=== PATIENT | female | born 1940 | race Asian ===

== ENCOUNTER 2016-06-21 03:11 | Inpatient (IN) | payer MEDICARE ==
[~2016-06-21] VITALS: Ht 175.3 cm; Wt 167.9 kg
[~2016-06-21 03:11] MED LIST: ACET325T26 PO; AMIO200T PO; AMIO200T42 PO; AMLO5TAB4 PO; APIX2.5T PO; ASPI-496 PO; CARV-39 PO; COLC1TAB PO; FURO-93 PO; FURO20TA3 PO; HYDR-3138 PO; INDO50CA PO; LINA5TAB PO; LISI-167 PO; OMEP-110 PO; PANT40TA5 PO; TEMA15CA6 PO; WARF5TAB PO
[2016-06-21] MEDS ORDERED: ALBUTEROL/IPRATROPIUM 2.5MG/0.5MG, 3 ML ONE (03:47)
[2016-06-21] MEDS ORDERED: PANT20TA3 PO (03:47)
[2016-06-21] MEDS ORDERED: IBUP-1222 PO (03:49)
[2016-06-21] MEDS ORDERED: ATOR40TA78 PO (03:50)
[2016-06-21] MEDS ORDERED: ALBUTEROL SULFATE 2.5 MG/3 ML NPPB ONE (04:00)
[2016-06-21 05:01] LABS: BLOOD UREA NITROGEN 31 mg/dL (7-18); IS PT STATUS REG ER OR PRE ER? YES
[2016-06-21] MEDS ORDERED: BACITRACIN ZINC OINT 500U/GM, 0.9 GM ONE (05:15)
[2016-06-21] MEDS ORDERED: ONDANSETRON 2MG/ML, 2ML IVPush PRN (05:30)
[2016-06-21 06:41] VITALS: BP 127/73
[2016-06-21 06:57] VITALS: BP 117/73
[2016-06-21] MEDS ORDERED: HYDROcodone/APAP 5/325 TABLET PO PRN (10:30)
[2016-06-21] MEDS ORDERED: NITROGLYCERIN OINT 2%, 1GM TP ONE (11:00)
[2016-06-21] MEDS: INSULIN REGULAR 100 UNITS/ML, 3ML VIAL SQ-INSULIN SCH ×3 (11:00→21:44)
[2016-06-21] MEDS: FUROSEMIDE 40 MG/4 ML IV SCH (11:07)
[2016-06-21 11:33] LABS: IS PT STATUS REG ER OR PRE ER? NO
[2016-06-21 12:37] VITALS: BP 133/72
[2016-06-21] MEDS ORDERED: FUROSEMIDE 40 MG/4 ML IV ONE (15:30)
[2016-06-21 16:10] LABS: IS PT STATUS REG ER OR PRE ER? NO
[2016-06-21 16:49] LABS: PATH.CAST-FLAG NOT PRESENT; SPERM-FLAG NOT PRESENT; SRC-FLAG NOT PRESENT; XTAL-FLAG NOT PRESENT; YLC-FLAG NOT PRESENT
[2016-06-21] MEDS ORDERED: WARFARIN 1 MG TABLET PO-COUM ONE (18:00)
[2016-06-21 19:30] VITALS: BP 118/70
[2016-06-21] MEDS: ATORVASTATIN 40 MG TABLET PO SCH (20:32)
[2016-06-21] MEDS: CARVEDILOL 25 MG TABLET PO SCH (20:42)
[2016-06-21] MEDS ORDERED: CARVEDILOL 25 MG TABLET PO SCH (21:00)
[2016-06-22 03:00] VITALS: BP 108/71
[2016-06-22 05:54] LABS: BLOOD UREA NITROGEN 42 mg/dL (7-18)
[2016-06-22 05:57] LABS: ASPARTATE AMINO TRANSFERASE 13 U/L (15-37)
[2016-06-22 07:21] VITALS: BP 119/72
[2016-06-22] MEDS: INSULIN REGULAR 100 UNITS/ML, 3ML VIAL SQ-INSULIN SCH ×4 (07:59→20:56)
[2016-06-22] MEDS: FUROSEMIDE 40 MG/4 ML IV SCH (09:45)
[2016-06-22] MEDS: CARVEDILOL 25 MG TABLET PO SCH ×2 (09:49→20:49)
[2016-06-22] MEDS: AMIODARONE 200 MG TABLET PO SCH (09:49)
[2016-06-22] MEDS: SENNA/DOCUSATE TABLET PO SCH (09:49)
[2016-06-22] MEDS ORDERED: methylPREDNISolone 4mg DOSE PACK PO SCH (10:00)
[2016-06-22] MEDS: CEFDINIR 300 MG CAPSULE PO SCH ×2 (11:05→23:05)
[2016-06-22] MEDS: GUAIFENESIN 200 MG TABLET PO SCH ×3 (11:05→20:50)
[2016-06-22 12:40] VITALS: BP 137/70
[2016-06-22] MEDS ORDERED: BISACODYL 10 MG SUPP PR PRN (14:30)
[2016-06-22 16:20] VITALS: BP 97/67
[2016-06-22] MEDS ORDERED: WARFARIN 1 MG TABLET PO-COUM ONE (18:00)
[2016-06-22 20:08] VITALS: BP 125/76
[2016-06-22] MEDS: ATORVASTATIN 40 MG TABLET PO SCH (20:50)
[2016-06-23 01:48] VITALS: BP 138/74
[2016-06-23 05:45] LABS: BLOOD UREA NITROGEN 41 mg/dL (7-18)
[2016-06-23] MEDS: INSULIN REGULAR 100 UNITS/ML, 3ML VIAL SQ-INSULIN SCH ×2 (07:00→11:00)
[2016-06-23 08:02] VITALS: BP 131/78
[2016-06-23] MEDS ORDERED: HOLD COUMADIN MC PRN (08:30)
[2016-06-23] MEDS: CARVEDILOL 25 MG TABLET PO SCH (09:00)
[2016-06-23] MEDS: SENNA/DOCUSATE TABLET PO SCH (09:09)
[2016-06-23] MEDS: AMIODARONE 200 MG TABLET PO SCH (09:09)
[2016-06-23] MEDS: CEFDINIR 300 MG CAPSULE PO SCH (09:09)
[2016-06-23] MEDS: GUAIFENESIN 200 MG TABLET PO SCH ×2 (09:09→12:42)
[2016-06-23] MEDS ORDERED: CARV25TA12 PO (11:09)
[2016-06-23] MEDS ORDERED: CEFD300C37 PO (11:09)
[2016-06-23] MEDS ORDERED: GUAI200T3 PO (11:09)
[2016-06-23] MEDS ORDERED: METH4TAB2 PO (11:09)
[2016-06-23] MEDS ORDERED: CARVEDILOL 12.5 MG TABLET PO SCH (21:00)
== END 2016-06-23 15:30 | disposition home or self-care (01) | DRG 291 ==
LOC: ED 03:47 → EDIP 05:09 → 5SO 06:52 → DCLOUNGE 06-23 15:00
PROVIDERS: ADMIT Family Medicine; ATTEND Family Medicine
DX: I13.0 Hypertensive heart and chronic kidney disease with heart failure and stage 1 through stage 4 chronic kidney disease, or unspecified chronic kidney disease (principal); J96.01 Acute respiratory failure with hypoxia; D68.69 Other thrombophilia; N18.4 Chronic kidney disease, stage 4 (severe); J44.0 Chronic obstructive pulmonary disease with (acute) lower respiratory infection; I50.32 Chronic diastolic (congestive) heart failure; Z68.43 Body mass index [BMI] 50.0-59.9, adult; E66.01 Morbid (severe) obesity due to excess calories; E11.22 Type 2 diabetes mellitus with diabetic chronic kidney disease; G89.29 Other chronic pain; I45.9 Conduction disorder, unspecified; M19.90 Unspecified osteoarthritis, unspecified site; I48.91 Unspecified atrial fibrillation; J20.9 Acute bronchitis, unspecified; M10.9 Gout, unspecified; Z79.01 Long term (current) use of anticoagulants; Z87.440 Personal history of urinary (tract) infections; Z95.0 Presence of cardiac pacemaker
CPT/HCPCS: 36415; 71010; 78582; 80048; 80053; 81001; 82040; 82962; 83880; 84443; 84484; 85025; 85610; 93005; 93306; 93308; 93321; 93325; 94640; 99285; J1815; J1940; J7509; J7613; A9540; A9558; C9898; J7512

== ENCOUNTER 2016-07-18 21:40 | Inpatient (IN) | payer SELFPAY ==
[~2016-07-18] VITALS: Ht 175.3 cm; Wt 175.9 kg
[2016-07-18] MEDS: CARVEDILOL 25 MG TABLET PO SCH (00:55)
[2016-07-18] MEDS: SODIUM CHLORIDE 0.9% 1,000 ML IV SCH (01:30)
[~2016-07-18 21:40] MED LIST changes: +ATOR40TA78 PO; +CARV25TA12 PO; +CEFD300C37 PO; +GUAI200T3 PO; +HEPARIN 5,000 UNITS/ML, 1ML IV ONE; +HEPARIN 5,000 UNITS/ML, 1ML ONE; +IBUP-1222 PO; +METH4TAB2 PO; +PANT20TA3 PO
[2016-07-18 23:30] VITALS: BP 149/82
[2016-07-19] MEDS: ATORVASTATIN 40 MG TABLET PO SCH ×2 (00:55→21:29)
[2016-07-19] MEDS ORDERED: HEPARIN 5,000 UNITS/ML, 1ML ONE (02:59)
[2016-07-19] MEDS: HEPARIN 5,000 UNITS/ML, 1ML IV PRN (03:00)
[2016-07-19 07:02] VITALS: BP 131/79
[2016-07-19] MEDS: PANTOPRAZOLE 20MG TABLET PO SCH ×2 (07:30→11:00)
[2016-07-19] MEDS: SODIUM CHLORIDE 0.9% 1,000 ML IV SCH ×2 (07:40→17:40)
[2016-07-19] MEDS: AMLODIPINE 5 MG TABLET PO SCH ×2 (09:00→11:00)
[2016-07-19] MEDS: AMIODARONE 200 MG TABLET PO SCH ×2 (09:00→11:00)
[2016-07-19] MEDS: CARVEDILOL 25 MG TABLET PO SCH (09:00)
[2016-07-19] MEDS ORDERED: HEPARIN 25,000 UNITS/500ML PMX 500 ML ONE (13:28)
[2016-07-19] MEDS: INSULIN ASPART 100 UNITS/ML, 3ML PEN LOW DOSE SS SQ-INSULIN SCH ×2 (13:30→21:30)
[2016-07-19 14:43] VITALS: BP 144/76
[2016-07-19] MEDS ORDERED: WARFARIN 5 MG TABLET PO-COUM ONE (18:00)
[2016-07-19 18:35] VITALS: BP 154/76
[2016-07-19] MEDS: DIPHENHYDRAMINE/ZINC CRM 2%, 30GM TP PRN (21:28)
[2016-07-19 22:29] LABS: IS PT STATUS REG ER OR PRE ER? NO
[2016-07-20 02:05] VITALS: BP 130/75
[2016-07-20 02:25] LABS: BLOOD UREA NITROGEN 19 mg/dL (7-18)
[2016-07-20 02:53] LABS: IS PT STATUS REG ER OR PRE ER? NO
[2016-07-20] MEDS: DIPHENHYDRAMINE/ZINC CRM 2%, 30GM TP PRN (05:33)
[2016-07-20] MEDS: CARVEDILOL 25 MG TABLET PO SCH ×2 (05:36→17:15)
[2016-07-20] MEDS: INSULIN ASPART 100 UNITS/ML, 3ML PEN LOW DOSE SS SQ-INSULIN SCH ×4 (05:37→20:12)
[2016-07-20 07:07] VITALS: BP 139/75
[2016-07-20] MEDS: TRAJENTA 5 MG PO SCH (09:00)
[2016-07-20] MEDS: PANTOPRAZOLE 20MG TABLET PO SCH (09:57)
[2016-07-20] MEDS: AMIODARONE 200 MG TABLET PO SCH (09:57)
[2016-07-20] MEDS: AMLODIPINE 5 MG TABLET PO SCH (10:00)
[2016-07-20 10:14] LABS: IS PT STATUS REG ER OR PRE ER? NO
[2016-07-20] MEDS: DIPHENHYDRAMINE/ZINC CRM 2%, 30GM TP SCH ×3 (11:00→20:13)
[2016-07-20] MEDS ORDERED: ALBUTEROL/IPRATROPIUM 2.5MG/0.5MG, 3 ML NPPB PRN (11:00)
[2016-07-20 12:25] VITALS: BP 135/77
[2016-07-20] MEDS: HEPARIN 25,000 UNITS/500ML PMX 500 ML IV PRN (14:58)
[2016-07-20] MEDS ORDERED: WARFARIN 5 MG TABLET PO-COUM ONE (18:00)
[2016-07-20 20:02] VITALS: BP 126/69
[2016-07-20] MEDS: ATORVASTATIN 40 MG TABLET PO SCH (20:13)
[2016-07-21] MEDS ORDERED: IBUPROFEN 200 MG TABLET PO PRN (01:30)
[2016-07-21 02:04] VITALS: BP 159/75
[2016-07-21] MEDS: CARVEDILOL 25 MG TABLET PO SCH ×3 (05:55→17:41)
[2016-07-21] MEDS: DIPHENHYDRAMINE/ZINC CRM 2%, 30GM TP SCH ×4 (05:58→20:50)
[2016-07-21 06:23] LABS: ANTI-Xa-UNFRACTIONATED HEP 0.23 IU/mL (0.30-0.70)
[2016-07-21 06:38] VITALS: BP 133/76
[2016-07-21] MEDS: INSULIN ASPART 100 UNITS/ML, 3ML PEN LOW DOSE SS SQ-INSULIN SCH ×4 (07:00→20:49)
[2016-07-21] MEDS ORDERED: ACETAMINOPHEN 325 MG TABLET PO PRN (07:30)
[2016-07-21] MEDS: AMIODARONE 200 MG TABLET PO SCH (08:30)
[2016-07-21] MEDS: PANTOPRAZOLE 20MG TABLET PO SCH (08:30)
[2016-07-21] MEDS: AMLODIPINE 5 MG TABLET PO SCH (08:30)
[2016-07-21] MEDS: HEPARIN 5,000 UNITS/ML, 1ML IV PRN ×2 (08:34→16:14)
[2016-07-21] MEDS: HEPARIN 25,000 UNITS/500ML PMX 500 ML IV PRN (08:36)
[2016-07-21] MEDS: TRAJENTA 5 MG PO SCH (08:39)
[2016-07-21 11:37] VITALS: BP 117/57
[2016-07-21 12:43] LABS: ASPARTATE AMINO TRANSFERASE 17 U/L (15-37); BLOOD UREA NITROGEN 19 mg/dL (7-18)
[2016-07-21 12:44] LABS: IS PT STATUS REG ER OR PRE ER? NO
[2016-07-21 15:35] VITALS: BP 132/68
[2016-07-21] MEDS ORDERED: WARFARIN 7.5 MG TABLET PO-COUM ONE (18:00)
[2016-07-21 20:27] VITALS: BP 133/84
[2016-07-21] MEDS: ATORVASTATIN 40 MG TABLET PO SCH (20:49)
[2016-07-22 00:50] VITALS: BP 132/68
[2016-07-22] MEDS: DIPHENHYDRAMINE/ZINC CRM 2%, 30GM TP SCH ×4 (05:52→20:30)
[2016-07-22] MEDS: CARVEDILOL 25 MG TABLET PO SCH ×2 (05:52→17:55)
[2016-07-22] MEDS: HEPARIN 25,000 UNITS/500ML PMX 500 ML IV PRN ×2 (05:56→20:30)
[2016-07-22] MEDS: INSULIN ASPART 100 UNITS/ML, 3ML PEN LOW DOSE SS SQ-INSULIN SCH ×4 (07:00→20:30)
[2016-07-22 08:56] VITALS: BP 124/76
[2016-07-22] MEDS: TRAJENTA 5 MG PO SCH (09:00)
[2016-07-22] MEDS: AMIODARONE 200 MG TABLET PO SCH (09:02)
[2016-07-22] MEDS: PANTOPRAZOLE 20MG TABLET PO SCH (09:02)
[2016-07-22] MEDS: AMLODIPINE 5 MG TABLET PO SCH (09:02)
[2016-07-22 10:22] LABS: ASPARTATE AMINO TRANSFERASE 19 U/L (15-37); BLOOD UREA NITROGEN 21 mg/dL (7-18)
[2016-07-22 10:28] LABS: IS PT STATUS REG ER OR PRE ER? NO
[2016-07-22] MEDS: HYDROCORTISONE CRM 1%, 30GM TP SCH ×3 (15:34→20:30)
[2016-07-22 15:48] VITALS: BP 121/80
[2016-07-22] MEDS ORDERED: POLYETHYLENE GLYCOL 17 GM PACKET PO PRN (17:00)
[2016-07-22] MEDS ORDERED: WARFARIN 2 MG TABLET PO-COUM ONE (18:00)
[2016-07-22] MEDS: DOCUSATE 100 MG CAPSULE PO PRN (18:19)
[2016-07-22] MEDS: ATORVASTATIN 40 MG TABLET PO SCH (20:30)
[2016-07-22 21:41] VITALS: BP 146/76
[2016-07-23 01:41] VITALS: BP 135/85
[2016-07-23 05:16] VITALS: BP 110/68
[2016-07-23] MEDS: DOCUSATE 100 MG CAPSULE PO PRN (05:17)
[2016-07-23] MEDS: CARVEDILOL 25 MG TABLET PO SCH ×2 (05:18→17:18)
[2016-07-23] MEDS: DIPHENHYDRAMINE/ZINC CRM 2%, 30GM TP SCH ×4 (05:19→21:00)
[2016-07-23 05:29] LABS: ANTI-Xa-UNFRACTIONATED HEP 0.22 IU/mL (0.30-0.70)
[2016-07-23 05:37] LABS: BLOOD UREA NITROGEN 14 mg/dL (7-18)
[2016-07-23] MEDS: HEPARIN 5,000 UNITS/ML, 1ML IV PRN ×2 (06:08→20:11)
[2016-07-23 06:30] VITALS: BP 115/66
[2016-07-23] MEDS: INSULIN ASPART 100 UNITS/ML, 3ML PEN LOW DOSE SS SQ-INSULIN SCH ×4 (07:00→20:04)
[2016-07-23] MEDS: PANTOPRAZOLE 20MG TABLET PO SCH (07:53)
[2016-07-23] MEDS: AMIODARONE 200 MG TABLET PO SCH (08:09)
[2016-07-23] MEDS: HYDROCORTISONE CRM 1%, 30GM TP SCH ×3 (08:09→20:11)
[2016-07-23] MEDS: AMLODIPINE 5 MG TABLET PO SCH (08:09)
[2016-07-23] MEDS: TRAJENTA 5 MG PO SCH (08:13)
[2016-07-23] MEDS: HEPARIN 25,000 UNITS/500ML PMX 500 ML IV PRN (11:38)
[2016-07-23 13:23] VITALS: BP 112/64
[2016-07-23] MEDS ORDERED: BISACODYL 10 MG SUPP PR PRN (15:00)
[2016-07-23] MEDS ORDERED: POLYETHYLENE GLYCOL 17 GM PACKET PO PRN (17:00)
[2016-07-23] MEDS ORDERED: WARFARIN 5 MG TABLET PO-COUM SCH (18:00)
[2016-07-23 20:01] VITALS: BP 121/71
[2016-07-23] MEDS: ATORVASTATIN 40 MG TABLET PO SCH (20:11)
[2016-07-24] MEDS: HEPARIN 25,000 UNITS/500ML PMX 500 ML IV PRN ×2 (01:02→16:02)
[2016-07-24 01:58] VITALS: BP 126/79
[2016-07-24 02:33] LABS: BLOOD UREA NITROGEN 18 mg/dL (7-18)
[2016-07-24 05:04] VITALS: BP 105/57
[2016-07-24] MEDS: DIPHENHYDRAMINE/ZINC CRM 2%, 30GM TP SCH ×4 (05:09→21:00)
[2016-07-24] MEDS: CARVEDILOL 25 MG TABLET PO SCH ×2 (05:09→17:32)
[2016-07-24 06:50] VITALS: BP 119/65
[2016-07-24] MEDS: INSULIN ASPART 100 UNITS/ML, 3ML PEN LOW DOSE SS SQ-INSULIN SCH ×4 (07:00→21:00)
[2016-07-24] MEDS: TRAJENTA 5 MG PO SCH (09:00)
[2016-07-24] MEDS: HYDROCORTISONE CRM 1%, 30GM TP SCH ×3 (09:15→21:30)
[2016-07-24] MEDS: HYDROcodone/APAP 5/325 TABLET PO PRN ×4 (09:15→21:49)
[2016-07-24] MEDS: AMLODIPINE 5 MG TABLET PO SCH (09:15)
[2016-07-24] MEDS: PANTOPRAZOLE 20MG TABLET PO SCH (09:15)
[2016-07-24] MEDS: AMIODARONE 200 MG TABLET PO SCH (09:15)
[2016-07-24 13:20] VITALS: BP 130/67
[2016-07-24] MEDS ORDERED: WARFARIN 2 MG TABLET PO-COUM ONE (18:00)
[2016-07-24 19:38] VITALS: BP 130/68
[2016-07-24] MEDS: ATORVASTATIN 40 MG TABLET PO SCH (21:30)
[2016-07-25 03:40] VITALS: BP 116/73
[2016-07-25] MEDS: HYDROcodone/APAP 5/325 TABLET PO PRN ×2 (03:42→12:00)
[2016-07-25 05:26] LABS: ANTI-Xa-UNFRACTIONATED HEP 0.19 IU/mL (0.30-0.70)
[2016-07-25 05:29] LABS: BLOOD UREA NITROGEN 22 mg/dL (7-18)
[2016-07-25] MEDS: CARVEDILOL 25 MG TABLET PO SCH (06:00)
[2016-07-25] MEDS: HEPARIN 5,000 UNITS/ML, 1ML IV PRN (06:04)
[2016-07-25] MEDS: HEPARIN 25,000 UNITS/500ML PMX 500 ML IV PRN (06:07)
[2016-07-25 06:45] VITALS: BP 127/58
[2016-07-25] MEDS: INSULIN ASPART 100 UNITS/ML, 3ML PEN LOW DOSE SS SQ-INSULIN SCH ×2 (07:00→11:00)
[2016-07-25] MEDS ORDERED: CARV25TA12 PO (07:48)
[2016-07-25] MEDS ORDERED: WARF1TAB PO-COUM (07:48)
[2016-07-25] MEDS: AMIODARONE 200 MG TABLET PO SCH (07:50)
[2016-07-25] MEDS: PANTOPRAZOLE 20MG TABLET PO SCH (07:51)
[2016-07-25] MEDS: TRAJENTA 5 MG PO SCH (07:51)
[2016-07-25] MEDS: HYDROCORTISONE CRM 1%, 30GM TP SCH (07:52)
[2016-07-25] MEDS: AMLODIPINE 5 MG TABLET PO SCH (07:52)
[2016-07-25] MEDS: DIPHENHYDRAMINE/ZINC CRM 2%, 30GM TP SCH ×2 (07:53→11:00)
[2016-07-25] MEDS ORDERED: WARFARIN 1 MG TABLET PO-COUM SCH (18:00)
[2016-07-27 11:06] LABS: APTT 41.8 sec (.); PROTHROMBIN TIME 11.2 sec (.)
== END 2016-07-25 15:56 | disposition home health service (06) | DRG 300 ==
LOC: 5SO 21:40 → 4WST 07-21 11:07
PROVIDERS: ADMIT Hospitalist
DX: I82.622 Acute embolism and thrombosis of deep veins of left upper extremity (principal); D68.69 Other thrombophilia; E44.0 Moderate protein-calorie malnutrition; E87.1 Hypo-osmolality and hyponatremia; N17.9 Acute kidney failure, unspecified; Z68.43 Body mass index [BMI] 50.0-59.9, adult; K21.9 Gastro-esophageal reflux disease without esophagitis; D64.9 Anemia, unspecified; E11.22 Type 2 diabetes mellitus with diabetic chronic kidney disease; E66.9 Obesity, unspecified; I13.10 Hypertensive heart and chronic kidney disease without heart failure, with stage 1 through stage 4 chronic kidney disease, or unspecified chronic kidney disease; I48.2 Chronic atrial fibrillation; M17.12 Unilateral primary osteoarthritis, left knee; M10.9 Gout, unspecified; J40 Bronchitis, not specified as acute or chronic; Z95.0 Presence of cardiac pacemaker; Z79.899 Other long term (current) drug therapy; Z82.49 Family history of ischemic heart disease and other diseases of the circulatory system
CPT/HCPCS: 36415; 71010; 71250; 74176; 78582; 80048; 80053; 81241; 82040; 82962; 83036; 83735; 84439; 84443; 84484; 84550; 85025; 85300; 85301; 85303; 85306; 85520; 85598; 85610; 85613; 85670; 85730; 85732; 86146; 86147; 93005; 94640; J1644; J7620; A9540; A9558; C9898; J7030

== ENCOUNTER 2018-12-24 15:19 | Inpatient (IN) | payer MEDICARE ==
[~2018-12-24] VITALS: Ht 170.2 cm; Wt 170.0 kg
[~2018-12-24 15:19] MED LIST changes: +CARV12.543 PO; +GLIM4TAB4 PO; -GUAI200T3 PO; +GUAI200T37 PO; -HEPARIN 5,000 UNITS/ML, 1ML IV ONE; -HEPARIN 5,000 UNITS/ML, 1ML ONE; -HYDR-3138 PO; +HYDR-3237 PO; -INDO50CA PO; +INDO50CA15 PO; +WARF1TAB PO-COUM
--- NOTE | 2018-12-24 16:03 | NUR ---
Note undone in EDM - 12/24/18 at 1605 by KAELYN Assumed care of patient. C/O SOB x 1 week. +orthopnea. 1+ bilat pedal edema. Denies CP, dizziness, palpitations, and nausea. Placed on NIBP, pulse ox and cardiac monitor technician. Family at bedside. Will continue to monitor.
--- NOTE | 2018-12-24 16:05 | NUR ---
Assumed care of patient. C/O SOB x 1 week. +orthopnea. 2+ bilat pedal edema. Denies CP, dizziness, palpitations, and nausea. Placed on NIBP, pulse ox and monitoring tech. Family at bedside. Will continue to monitor.
[2018-12-24] MEDS ORDERED: COLC0.6T37 PO (16:12)
[2018-12-24] MEDS ORDERED: LISI-167 PO (16:12)
[2018-12-24] MEDS ORDERED: ERGO500017 PO (16:12)
[2018-12-24] MEDS ORDERED: WARF-36 PO (16:12)
[2018-12-24] MEDS ORDERED: LINA5TAB PO (16:12)
[2018-12-24] MEDS ORDERED: WARF2.5T32 PO (16:12)
[2018-12-24] MEDS ORDERED: CARV-39 PO (16:12)
[2018-12-24] MEDS ORDERED: LEVO50TA5 PO (16:12)
[2018-12-24] MEDS ORDERED: SODIUM CHLORIDE FLUSH 10ML SYR IVF ONE (16:30)
[2018-12-24 16:33] LABS: BASOPHILS # (AUTO) 0.03 x10^3/uL (0-0.1); BASOPHILS % (AUTO) 1 % (0-1); EOSINOPHILS # (AUTO) 0.09 x10^3/uL (0-0.4); EOSINOPHILS % (AUTO) 2 % (1-7); LYMPHOCYTES # (AUTO) 0.88 x10^3/uL (1-3.4); LYMPHOCYTES % (AUTO) 17 % (22-44); MD NO; MEAN CORPUSCULAR HEMOGLOBIN 34.6 pg (27.0-34.8); MEAN CORPUSCULAR HGB CONC 32.5 g/dL (32.4-35.8); MEAN CORPUSCULAR VOLUME 106.7 fL (80-100); MONOCYTES # (AUTO) 0.81 x10^3/uL (0.2-0.8); MONOCYTES % (AUTO) 16 % (2-9); NEUTROPHILS # (AUTO) 3.32 x10^3/uL (1.8-6.8); NEUTROPHILS % (AUTO) 65 % (42-75); PLATELET COUNT 162 x10^3/uL (130-400); RED BLOOD COUNT 3.41 x10^6/uL (3.82-5.3); RED CELL DISTRIBUTION WIDTH 15.6 % (9.6-15.2)
[2018-12-24 16:43] LABS: ALANINE AMINOTRANSFERASE 63 U/L (12-78); ALBUMIN 2.8 g/dL (3.4-5.0); ANION GAP 5 mmol/L (5-15); CALCIUM 8.2 mg/dL (8.5-10.1); CHLORIDE 106 mmol/L (98-107); CREATININE 2.29 mg/dL (0.55-1.02)
[2018-12-24 16:47] LABS: ALKALINE PHOSPHATASE 78 U/L (45-117); BILIRUBIN,TOTAL 0.5 mg/dL (0.2-1.0); TOTAL PROTEIN 7.9 g/dL (6.4-8.2); TROPONIN I < 0.015 ng/mL (0.000-0.045)
--- NOTE | 2018-12-24 16:52 | NUR ---
x2 assist to BSC. UA sent to lab. No other needs.
[2018-12-24 17:14] LABS: MICROSCOPIC AUTO
[2018-12-24 17:15] LABS: CULTURE INDICATED? YES
[2018-12-24 17:15] LABS: D-DIMER 1.24 ug/mlFEU (0.00-0.52)
[2018-12-24 17:31] LABS: INTERNATIONAL NORMALIZED RATIO 11.93 (0.93-1.1); PROTHROMBIN TIME 113.9 Seconds (9.6-11.5)
[2018-12-24] MEDS ORDERED: CEFTRIAXONE PMX 1GM/50ML 50 ML IV ONE (18:30)
[2018-12-24] MEDS ORDERED: FUROSEMIDE 40 MG/4 ML IV ONE (18:30)
[2018-12-24] MEDS ORDERED: PHYTONADIONE 10 MG in SODIUM CHLORIDE 0.9% 50 ML IV ONE (18:30)
[2018-12-24] MEDS ORDERED: FUROSEMIDE 40 MG/4 ML ONE (18:38)
[2018-12-24] MEDS ORDERED: CEFTRIAXONE PMX 1GM/50ML 50 ML ONE (18:38)
[2018-12-24 19:42] VITALS: BP 145/80
[2018-12-24] MEDS ORDERED: FLU VACC QS2019-20 36MOS UP/PF 0.5 ML IM-VACC ONE (20:30)
[2018-12-24] MEDS ORDERED: ACETAMINOPHEN 325 MG TABLET PO PRN (23:30)
[2018-12-24] MEDS ORDERED: ONDANSETRON 2MG/ML, 2ML IVPush PRN (23:30)
[2018-12-24] MEDS ORDERED: hydrALAzine 20 MG/ML, 1ML IVPush PRN (23:30)
[2018-12-24] MEDS: ATORVASTATIN 20 MG TABLET PO SCH (23:36)
[2018-12-24] MEDS: CARVEDILOL 25 MG TABLET PO SCH (23:36)
[2018-12-24 23:52] LABS: HEMOGLOBIN A1C 6.2 % (4.2-6.3)
[2018-12-25 00:13] LABS: FREE T4 (FREE THYROXINE) 1.34 ng/dL (0.76-1.46)
[2018-12-25 01:16] VITALS: BP 123/69
[2018-12-25] MEDS ORDERED: CEFTRIAXONE PMX 2GM/50ML 50 ML IV SCH (04:00)
[2018-12-25 05:07] LABS: BASOPHILS # (AUTO) 0.03 x10^3/uL (0-0.1); BASOPHILS % (AUTO) 0 % (0-1); EOSINOPHILS # (AUTO) 0.09 x10^3/uL (0-0.4); EOSINOPHILS % (AUTO) 2 % (1-7); LYMPHOCYTES # (AUTO) 0.81 x10^3/uL (1-3.4); LYMPHOCYTES % (AUTO) 13 % (22-44); MD NO; MEAN CORPUSCULAR HGB CONC 32.4 g/dL (32.4-35.8); MEAN CORPUSCULAR VOLUME 104.8 fL (80-100); MEAN PLATELET VOLUME 8.4 fL (7.4-10.4); MONOCYTES # (AUTO) 0.58 x10^3/uL (0.2-0.8); MONOCYTES % (AUTO) 10 % (2-9); NEUTROPHILS # (AUTO) 4.56 x10^3/uL (1.8-6.8); NEUTROPHILS % (AUTO) 75 % (42-75); PLATELET COUNT 171 x10^3/uL (130-400); RED BLOOD COUNT 3.61 x10^6/uL (3.82-5.3); RED CELL DISTRIBUTION WIDTH 15.8 % (9.6-15.2)
[2018-12-25 05:12] LABS: INTERNATIONAL NORMALIZED RATIO 1.7 (0.93-1.1); PROTHROMBIN TIME 17.5 Seconds (9.6-11.5)
[2018-12-25 05:16] LABS: ANION GAP 6 mmol/L (5-15); CALCIUM 8.6 mg/dL (8.5-10.1); CHLORIDE 106 mmol/L (98-107); CREATININE 2.17 mg/dL (0.55-1.02)
[2018-12-25] MEDS: LEVOTHYROXINE 50 MCG TABLET PO SCH (05:42)
[2018-12-25] MEDS ORDERED: FUROSEMIDE 20 MG/2 ML IV SCH (07:30)
[2018-12-25] MEDS ORDERED: ACETAMINOPHEN 325 MG TABLET PO PRN (07:30)
[2018-12-25] MEDS: CARVEDILOL 25 MG TABLET PO SCH ×2 (08:27→20:56)
[2018-12-25] MEDS: LISINOPRIL 10 MG TABLET PO SCH (08:28)
[2018-12-25] MEDS: LINAGLIPTIN 5 MG TAB PO SCH (08:29)
[2018-12-25] MEDS: AMLODIPINE 5 MG TABLET PO SCH (08:29)
[2018-12-25] MEDS: AMIODARONE 200 MG TABLET PO SCH (08:30)
[2018-12-25 08:33] VITALS: BP 122/79
[2018-12-25] MEDS ORDERED: LISINOPRIL 5 MG TABLET PO SCH (09:00)
[2018-12-25] MEDS ORDERED: HYDR-3342 PO ×2 (09:30)
[2018-12-25] MEDS ORDERED: FURO40TA6 PO (09:34)
[2018-12-25 13:03] VITALS: BP 113/66
[2018-12-25] MEDS ORDERED: CEFU500T50 PO (13:47)
[2018-12-25] MEDS: CEFUROXIME 500 MG TABLET PO SCH (14:08)
[2018-12-25] MEDS ORDERED: WARFARIN 3 MG TABLET PO-COUM ONE (18:00)
[2018-12-25 19:11] VITALS: BP 111/66
[2018-12-25] MEDS: ATORVASTATIN 20 MG TABLET PO SCH (20:56)
[2018-12-26 00:55] VITALS: BP 125/78
[2018-12-26] MEDS: LEVOTHYROXINE 50 MCG TABLET PO SCH (06:10)
[2018-12-26 06:52] VITALS: BP 130/77
[2018-12-26] MEDS: LISINOPRIL 10 MG TABLET PO SCH (08:34)
[2018-12-26] MEDS: AMLODIPINE 5 MG TABLET PO SCH (08:34)
[2018-12-26] MEDS: CARVEDILOL 25 MG TABLET PO SCH (08:34)
[2018-12-26] MEDS: AMIODARONE 200 MG TABLET PO SCH (08:34)
[2018-12-26] MEDS: LINAGLIPTIN 5 MG TAB PO SCH (08:34)
[2018-12-26 08:44] LABS: INTERNATIONAL NORMALIZED RATIO 1.35 (0.93-1.1)
[2018-12-26 13:56] VITALS: BP 99/63
[2018-12-26] MEDS ORDERED: LEVO75TA PO (15:06)
[2018-12-26] MEDS ORDERED: HYDR-3341 PO (15:12)
[2018-12-26] MEDS: CEFUROXIME 500 MG TABLET PO SCH (15:21)
[2018-12-26] MEDS ORDERED: FUROSEMIDE 20 MG/2 ML IV SCH (17:00)
[2018-12-26] MEDS ORDERED: WARFARIN 5 MG TABLET PO-COUM ONE (18:00)
[2018-12-27] MEDS ORDERED: LEVOTHYROXINE 75 MCG TABLET PO SCH (06:30)
== END 2018-12-26 17:40 | disposition home health service (06) | DRG 291 ==
LOC: ED 18:00 → EDIP 18:29 → 4WST 19:47
PROVIDERS: ADMIT Family Medicine; ATTEND Internal Medicine
DX: I13.0 Hypertensive heart and chronic kidney disease with heart failure and stage 1 through stage 4 chronic kidney disease, or unspecified chronic kidney disease (principal); I50.33 Acute on chronic diastolic (congestive) heart failure; N17.9 Acute kidney failure, unspecified; D68.69 Other thrombophilia; Z68.43 Body mass index [BMI] 50.0-59.9, adult; E66.2 Morbid (severe) obesity with alveolar hypoventilation; I48.20 Chronic atrial fibrillation, unspecified; N39.0 Urinary tract infection, site not specified; E11.22 Type 2 diabetes mellitus with diabetic chronic kidney disease; E78.00 Pure hypercholesterolemia, unspecified; G47.00 Insomnia, unspecified; E11.40 Type 2 diabetes mellitus with diabetic neuropathy, unspecified; I49.5 Sick sinus syndrome; M17.12 Unilateral primary osteoarthritis, left knee; K21.9 Gastro-esophageal reflux disease without esophagitis; N18.3 Chronic kidney disease, stage 3 (moderate); Z79.01 Long term (current) use of anticoagulants; Z86.718 Personal history of other venous thrombosis and embolism
CPT/HCPCS: 36415; 71045; 80048; 80053; 80307; 81001; 83036; 83605; 83880; 84145; 84439; 84443; 84484; 85025; 85379; 85610; 87077; 87086; 87186; 90686; 93005; 93306; 96365; 96375; G0378; J0696; J1940; J3430